=== PATIENT | female | born 1970 | race American Indian/Alaskan Native ===

== ENCOUNTER 2017-10-30 18:57 | Inpatient (IN) | payer OTHER ==
[2017-10-30 20:29] LABS: Basophils # (Auto) 0.1 K/mm3 (0.0-0.1); Eosinophils % (Auto) 0.2 % (0.0-4.3); Lymphocytes # (Auto) 1.8 K/mm3 (1.2-5.4); Lymphocytes % (Auto) 19.8 % (13.4-35.0); Mean Corpuscular HGB Conc 30 % (30-34); Mean Corpuscular Hemoglobin 29 pg (28-32); Mean Corpuscular Volume 98 fl (79-97); Monocytes # (Auto) 0.7 K/mm3 (0.0-0.8); Monocytes % (Auto) 7.9 % (0.0-7.3); Platelet Count 352 K/mm3 (140-440); Red Blood Count 1.73 M/mm3 (3.65-5.03); Red Cell Distribution Width 17.2 % (13.2-15.2)
[2017-10-30 20:45] LABS: Hematocrit 16.8 % (30.3-42.9); Hemoglobin 5.1 gm/dl (10.1-14.3)
[2017-10-30 20:57] LABS: Alanine Aminotransferase 15 units/L (7-56); Albumin 3.6 g/dL (3.9-5); BUN/Creatinine Ratio 11; Blood Urea Nitrogen 8 mg/dL (7-17); Hemolysis Index 7
[2017-10-31 07:43] LABS: Bacteria,Urine 1+ /HPF (Negative); Bilirubin,Urine NEG (Negative); Blood,Urine SM (Negative); Color,Urine Red (Yellow); Nitrite,Urine NEG (Negative); Protein,Urine <15 mg/dL mg/dL (Negative); Urobilinogen,Urine < 2.0 mg/dL (<2.0)
--- NOTE | 2017-10-31 09:09 | History and Physical Report ---
History of Present Illness Date of examination: 10/31/17 Date of admission: 10/31/17 Chief complaint: Generalized weakness and fatigue, nausea or vomiting History of present illness: 47-year-old -[place] female patient with significant past medical history of menorrhagia with uterine cysts Presented to the emergency room with generalized weakness and fatigue, patient was initially evaluated noted to have hemoglobin of 5.1 Patient seen TECHNICAL PROFESSIONAL many months ago, reports that TECHNICAL PROFESSIONAL did not recommend any surgical intervention Patient denies any chest pain or shortness of breath Nausea and vomiting resolved Review of complaints of generalized weakness fatigue and decreased effort tolerance No history of GI bleeding either hematemesis or melena Past History Past Medical History: other (menorrhagia ) Past Surgical History: No surgical history Social history: lives with family, full code. denies: smoking, alcohol abuse Family history: hypertension Medications and Allergies Allergies Allergy/AdvReac Type Severity Reaction Status Date / Time shrimp Allergy Swelling Verified 10/30/17 19:41 Review of Systems Constitutional: fatigue, weakness, no weight loss, no weight gain Ears, nose, mouth and throat: no nasal congestion, no nasal discharge Cardiovascular: decreased exercise tolerance, no chest pain, no orthopnea, no palpitations Respiratory: no cough, no shortness of breath Gastrointestinal: no abdominal pain, no nausea, no vomiting, no hematemesis, no melena, no hematochezia Genitourinary Female: no flank pain, no dysuria Menstruation: other (menorrhagia) Integumentary: no rash, no lesions Neurological: weakness, no seizures, no syncope Psychiatric: no anxiety, no depression Endocrine: no cold intolerance, no heat intolerance Hematologic/Lymphatic: no easy bruising, no easy bleeding Allergic/Immunologic: no urticaria, no allergic rhinitis Exam - Constitutional Vitals: Temp Pulse Resp BP Pulse Ox 98.6 F 103 H 14 126/67 100 10/31/17 07:25 10/31/17 07:25 10/31/17 03:40 10/31/17 03:40 10/31/17 03:40 General appearance: Present: no acute distress, well-nourished - EENT Eyes: Present: PERRL, EOM intact - Neck Neck: Present: supple, normal ROM - Respiratory Respiratory effort: normal Respiratory: negative: rales, rhonchi, wheezing - Cardiovascular Rhythm: regular Heart Sounds: Present: S1 & S2 - Extremities Extremities: no ischemia, No edema - Abdominal General gastrointestinal: Present: soft, non-tender, non-distended, normal bowel sounds - Integumentary Integumentary: Present: clear, warm, pale - Musculoskeletal Musculoskeletal: strength equal bilaterally, generalized weakness - Psychiatric Psychiatric: appropriate mood/affect, cooperative - Neurologic Neurologic: CNII-XII intact, moves all extremities Results - Labs CBC & Chem 7: 10/30/17 20:12 10/30/17 20:12 Labs: Abnormal lab results 10/30/17 10/30/17 Range/Units 20:12 20:12 RBC 1.73 L (3.65-5.03) M/mm3 Hgb 5.1 L* (10.1-14.3) gm/dl Hct 16.8 L* (30.3-42.9) % MCV 98 H (79-97) fl RDW 17.2 H (13.2-15.2) % [place] % (Auto) 7.9 H (0.0-7.3) % Seg Neutrophils % 71.1 H (40.0-70.0) % Sodium 136 L (137-145) mmol/L Chloride 95.7 L (98-107) mmol/L Glucose 116 H (65-100) mg/dL Calcium 8.0 L (8.4-10.2) mg/dL Total Protein 6.2 L (6.3-8.2) g/dL Albumin 3.6 L (3.9-5) g/dL Assessment and Plan --Acute on chronic blood loss anemia, hemoglobin 5.1 No active bleeding today, type and cross and transfuse 2 units of PRBC. Protocol Closely monitor H&H, iron supplements --History of menorrhagia; no active bleeding today Patient needs to see TECHNICAL PROFESSIONAL for further evaluation and management inpatient versus outpatient --Generalized weakness and fatigue/secondary to severe anemia Supportive care --DVT prophylaxis; no pharmacologic anticoagulation in view of severe anemia, we will use SCDs --DC planning; closely monitor H&H posttransfusion, if reasonable levels Can be discharged home Plan of care discussed with the patient here at physician and her nurse Answered all patient's questions, verbalized understanding
--- NOTE | 2017-10-31 09:32 | Emergency Department Report ---
ED General Adult HPI - General Chief complaint: Abdominal Pain Stated complaint: WEAKNESS, VAG BLEEDING Time Seen by Provider: 10/31/17 07:55 Source: patient Mode of arrival: Ambulatory Limitations: No Limitations - History of Present Illness Initial comments: 47-year-old female with history of dysfunctional uterine bleeding presents with weakness, near syncope, vomiting and diarrhea. She has had daily vaginal bleeding since February 2016. She has been followed by Dr. House inspector floor sub assembly [place] physician at [facility]. She has had pelvic ultrasounds and uterine endoscopy. However she does not have a definitive diagnosis. She comes to the ER for severe weakness and malaise. She denies pain. She states today the vaginal bleeding has stopped. She has not required transfusion in the past. She takes iron tablets daily. Patient is otherwise healthy. She denies history of hospitalizations. He received endoscopy at [facility]. -: Gradual, year(s) Severity scale (0 -10): 6 - Related Data Allergies Allergy/AdvReac Type Severity Reaction Status Date / Time shrimp Allergy Swelling Verified 10/30/17 19:41 ED Review of Systems ROS: Stated complaint: WEAKNESS, VAG BLEEDING Other details as noted in HPI Comment: All other systems reviewed and negative Constitutional: malaise, weakness Gastrointestinal: vomiting ED Past Medical Hx - Past Medical History Previous Medical History?: No - Surgical History Past Surgical History?: No - Social History Smoking Status: Never Smoker Substance Use Type: None ED Physical Exam - General Limitations: No Limitations General appearance: alert, in no apparent distress - Head Head exam: Present: atraumatic, normocephalic - Eye Eye exam: Present: normal appearance - ENT ENT exam: Present: mucous membranes moist - Neck Neck exam: Present: normal inspection. Absent: meningismus - Respiratory Respiratory exam: Present: normal lung sounds bilaterally. Absent: respiratory distress, wheezes, rales, rhonchi, stridor - Cardiovascular Cardiovascular Exam: Present: regular rate, normal rhythm, normal heart sounds. Absent: systolic murmur, diastolic murmur, rubs, gallop - GI/Abdominal GI/Abdominal exam: Present: soft, normal bowel sounds. Absent: distended, tenderness, guarding, rebound - External exam: Present: other (deferred) - Extremities Exam Extremities exam: Present: normal inspection - Back Exam Back exam: Present: normal inspection - Neurological Exam Neurological exam: Present: alert, oriented X3 - Psychiatric Psychiatric exam: Present: normal affect, normal mood - Skin Skin exam: Present: warm, dry, intact, normal color. Absent: rash ED Course Vital Signs 10/30/17 10/31/17 10/31/17 19:35 03:40 07:25 Temperature 98.2 F 98.4 F 98.6 F Pulse Rate 100 H 88 103 H Respiratory 20 14 Rate Blood Pressure 127/64 126/67 Blood Pressure 127/84 [Left] O2 Sat by Pulse 100 100 Oximetry ED Medical Decision Making - Lab Data Result diagrams: 10/30/17 20:12 10/30/17 20:12 Vital Signs - 24 hr 10/30/17 10/31/17 10/31/17 19:35 03:40 07:25 Temperature 98.2 F 98.4 F 98.6 F Pulse Rate 100 H 88 103 H Respiratory 20 14 Rate Blood Pressure 127/64 126/67 Blood Pressure 127/84 [Left] O2 Sat by Pulse 100 100 Oximetry Laboratory Results - last 24 hr 10/30/17 10/30/17 10/30/17 20:02 20:12 20:12 WBC 9.0 RBC 1.73 L Hgb 5.1 L* Hct 16.8 L* MCV 98 H MCH 29 MCHC 30 RDW 17.2 H Plt Count 352 Lymph % (Auto) 19.8 [place] % (Auto) 7.9 H Eos % (Auto) 0.2 Baso % (Auto) 1.0 Lymph # 1.8 [place] # 0.7 Eos # 0.0 Baso # 0.1 Seg Neutrophils % 71.1 H Seg Neutrophils # 6.4 Sodium 136 L Potassium 3.8 Chloride 95.7 L Carbon Dioxide 27 Anion Gap 17 BUN 8 Creatinine 0.7 Estimated GFR > 60 BUN/Creatinine Ratio 11 Glucose 116 H Calcium 8.0 L Total Bilirubin < 0.20 AST 21 ALT 15 Alkaline Phosphatase 54 Total Protein 6.2 L Albumin 3.6 L Albumin/Globulin Ratio 1.4 HCG, Quant Urine Color Urine Turbidity Urine pH Ur Specific [place] Urine Protein Urine Glucose (UA) Urine Ketones Urine Blood Urine Nitrite Urine Bilirubin Urine Urobilinogen Ur Leukocyte Esterase Urine WBC (Auto) Urine RBC (Auto) U Epithel Cells (Auto) Urine Bacteria (Auto) Blood Type B POSITIVE Antibody Screen Negative Crossmatch See Detail 10/30/17 10/31/17 20:12 07:25 WBC RBC Hgb Hct MCV MCH MCHC RDW Plt Count Lymph % (Auto) [place] % (Auto) Eos % (Auto) Baso % (Auto) Lymph # [place] # Eos # Baso # Seg Neutrophils % Seg Neutrophils # Sodium Potassium Chloride Carbon Dioxide Anion Gap BUN Creatinine Estimated GFR BUN/Creatinine Ratio Glucose Calcium Total Bilirubin AST ALT Alkaline Phosphatase Total Protein Albumin Albumin/Globulin Ratio HCG, Quant < 2 Urine Color Red Urine Turbidity Clear Urine pH 6.0 Ur Specific [place] 1.003 Urine Protein <15 mg/dl Urine Glucose (UA) Neg Urine Ketones Neg Urine Blood Sm Urine Nitrite Neg Urine Bilirubin Neg Urine Urobilinogen < 2.0 Ur Leukocyte Esterase Neg Urine WBC (Auto) 1.0 Urine RBC (Auto) 1.0 U Epithel Cells (Auto) 3.0 Urine Bacteria (Auto) 1+ Blood Type Antibody Screen Crossmatch - Medical Decision Making Ms. Weaver presents with severe anemia due to dysfunctional uterine bleeding. Daily vaginal bleeding for over one year. She will be admitted to service for transfusion therapy. Critical care attestation.: If time is entered above; I have spent that time in minutes in the direct care of this critically ill patient, excluding procedure time. ED Disposition Clinical Impression: Anemia, blood loss, Dysfunctional uterine bleeding Disposition: OP ADMIT IP TO THIS HOSP Is pt being admited?: Yes Does the pt Need Aspirin: No Condition: Stable Instructions: Abdominal Pain (ED) Referrals: YUAN GABRILE MD [Primary Care Provider] - 3-5 Days
[2017-10-31] MEDS ORDERED: NACL 0.9% 500 ML 500 ML IV NR (10:00)
[2017-10-31] MEDS: FEOSOL PO SCH ×2 (11:30→21:48)
[2017-10-31] MEDS: PEPCID PO SCH ×2 (11:35→21:48)
[2017-10-31 18:59] LABS: Hematocrit 23.7 % (30.3-42.9); Hemoglobin 7.3 gm/dl (10.1-14.3)
[2017-11-01] MEDS: TYLENOL PO PRN ×2 (04:55→17:36)
[2017-11-01 07:26] LABS: Basophils % (Auto) 0.3 % (0.0-1.8); Eosinophils # (Auto) 0.1 K/mm3 (0.0-0.4); Eosinophils % (Auto) 0.8 % (0.0-4.3); Hematocrit 23.6 % (30.3-42.9); Hemoglobin 7.1 gm/dl (10.1-14.3); Lymphocytes % (Auto) 16.5 % (13.4-35.0); Mean Corpuscular HGB Conc 30 % (30-34); Mean Corpuscular Hemoglobin 27 pg (28-32); Mean Corpuscular Volume 91 fl (79-97); Monocytes # (Auto) 1.1 K/mm3 (0.0-0.8); Monocytes % (Auto) 9.5 % (0.0-7.3); Platelet Count 334 K/mm3 (140-440); Red Blood Count 2.61 M/mm3 (3.65-5.03); Red Cell Distribution Width 18.3 % (13.2-15.2)
[2017-11-01] MEDS ORDERED: NACL 0.9% 500 ML 500 ML IV ONE ×2 (07:45→14:00)
--- NOTE | 2017-11-01 07:47 | Progress Note ---
Hospitalist Physical - Constitutional Vitals: Temp Pulse Resp BP Pulse Ox 99.4 F 75 20 106/64 98 10/31/17 23:48 10/31/17 23:48 10/31/17 23:48 10/31/17 23:48 10/31/17 23:48 General appearance: Present: no acute distress, well-nourished Results - Labs CBC & Chem 7: 11/01/17 06:41 10/30/17 20:12 Labs: Laboratory Last Values WBC 11.8 K/mm3 (4.5-11.0) H 11/01/17 06:41 RBC 2.61 M/mm3 (3.65-5.03) L 11/01/17 06:41 Hgb 7.1 gm/dl (10.1-14.3) L 11/01/17 06:41 Hct 23.6 % (30.3-42.9) L 11/01/17 06:41 MCV 91 fl (79-97) 11/01/17 06:41 MCH 27 pg (28-32) L 11/01/17 06:41 MCHC 30 % (30-34) 11/01/17 06:41 RDW 18.3 % (13.2-15.2) H 11/01/17 06:41 Plt Count 334 K/mm3 (140-440) 11/01/17 06:41 Lymph % (Auto) 16.5 % (13.4-35.0) 11/01/17 06:41 [place] % (Auto) 9.5 % (0.0-7.3) H 11/01/17 06:41 Eos % (Auto) 0.8 % (0.0-4.3) 11/01/17 06:41 Baso % (Auto) 0.3 % (0.0-1.8) 11/01/17 06:41 Lymph # 2.0 K/mm3 (1.2-5.4) 11/01/17 06:41 [place] # 1.1 K/mm3 (0.0-0.8) H 11/01/17 06:41 Eos # 0.1 K/mm3 (0.0-0.4) 11/01/17 06:41 Baso # 0.0 K/mm3 (0.0-0.1) 11/01/17 06:41 Seg Neutrophils % 72.9 % (40.0-70.0) H 11/01/17 06:41 Seg Neutrophils # 8.6 K/mm3 (1.8-7.7) H 11/01/17 06:41 Sodium 136 mmol/L (137-145) L 10/30/17 20:12 Potassium 3.8 mmol/L (3.6-5.0) 10/30/17 20:12 Chloride 95.7 mmol/L (98-107) L 10/30/17 20:12 Carbon Dioxide 27 mmol/L (22-30) 10/30/17 20:12 Anion Gap 17 mmol/L 10/30/17 20:12 BUN 8 mg/dL (7-17) 10/30/17 20:12 Creatinine 0.7 mg/dL (0.7-1.2) 10/30/17 20:12 Estimated GFR > 60 ml/min 10/30/17 20:12 BUN/Creatinine Ratio 11 % 10/30/17 20:12 Glucose 116 mg/dL (65-100) H 10/30/17 20:12 Calcium 8.0 mg/dL (8.4-10.2) L 10/30/17 20:12 Total Bilirubin < 0.20 mg/dL (0.1-1.2) 10/30/17 20:12 AST 21 units/L (5-40) 10/30/17 20:12 ALT 15 units/L (7-56) 10/30/17 20:12 Alkaline Phosphatase 54 units/L (35-129) 10/30/17 20:12 Total Protein 6.2 g/dL (6.3-8.2) L 10/30/17 20:12 Albumin 3.6 g/dL (3.9-5) L 10/30/17 20:12 Albumin/Globulin Ratio 1.4 % 10/30/17 20:12 HCG, Quant < 2 mIU/mL (0-4) 10/30/17 20:12 Urine Color Red (Yellow) 10/31/17 07:25 Urine Turbidity Clear (Clear) 10/31/17 07:25 Urine pH 6.0 (5.0-7.0) 10/31/17 07:25 Ur Specific [place] 1.003 (1.003-1.030) 10/31/17 07:25 Urine Protein <15 mg/dl mg/dL (Negative) 10/31/17 07:25 Urine Glucose (UA) Neg mg/dL (Negative) 10/31/17 07:25 Urine Ketones Neg mg/dL (Negative) 10/31/17 07:25 Urine Blood Sm (Negative) 10/31/17 07:25 Urine Nitrite Neg (Negative) 10/31/17 07:25 Urine Bilirubin Neg (Negative) 10/31/17 07:25 Urine Urobilinogen < 2.0 mg/dL (<2.0) 10/31/17 07:25 Ur Leukocyte Esterase Neg (Negative) 10/31/17 07:25 Urine WBC (Auto) 1.0 /HPF (0.0-6.0) 10/31/17 07:25 Urine RBC (Auto) 1.0 /HPF (0.0-6.0) 10/31/17 07:25 U Epithel Cells (Auto) 3.0 /HPF (0-13.0) 10/31/17 07:25 Urine Bacteria (Auto) 1+ /HPF (Negative) 10/31/17 07:25 Blood Type B POSITIVE 10/30/17 20:02 Antibody Screen Negative 10/30/17 20:02 Crossmatch See Detail 10/30/17 20:02
[2017-11-01] MEDS ORDERED: Fluarix Quad 2017-2018(36 MOS+ IM ONE (12:00)
[2017-11-01] MEDS: PEPCID PO SCH (12:12)
[2017-11-01] MEDS: FEOSOL PO SCH (12:12)
--- NOTE | 2017-11-01 13:10 | Discharge Summary ---
Providers - Providers Date of Admission: 10/31/17 08:57 Date of discharge: 11/01/17 Attending physician: PENELOPE HERNANDEZ Primary care physician: YUAN GABRIEL Hospitalization Reason for admission: Fatigue/symptomatic anemia Condition: Stable Pertinent studies: Growth and upon discharge was 5.1 Hospital course: 47-year-old -[place] female patient with significant past medical history of menorrhagia with uterine cysts was admitted through emergency room with symptomatic anemia, patient was feeling weak and fatigued unable to do daily chores, on evaluation patient is noted to have hemoglobin of 5.1 Admitted symptomatically managed Transfuse 2 units of PRBC with mild improvement, additional one more unit of PRBCs being transfused today Patient does not have any active bleeding He isn't also has a vague suprapubic discomfort, with mild burning of urine, urinalysis consistent with UTI Will advise Bactrim DS for 7 days, and follow with primary care physician Today's comfortable in bed no new complaints Vital signs are stable [id number] evaluation physical examination is unremarkable Patient is hemodynamically and clinically stable for discharge I spent 32 minutes coordinating this discharge Discharge diagnosis; Symptomatic anemia Acute on chronic blood loss anemia History of menorrhagia Generalized weakness and fatigue Urinary tract infection Disposition: IA- TO HOME OR SELFCARE Time spent for discharge: 32 min Core Measure Documentation - Palliative Care Palliative Care/ Comfort Measures: Not Applicable - Core Measures Any of the following diagnoses?: none Exam - Constitutional Vitals: Temp Pulse Resp BP Pulse Ox 98.4 F 67 18 109/63 99 11/01/17 08:22 11/01/17 08:22 11/01/17 08:22 11/01/17 08:22 11/01/17 08:22 General appearance: Present: no acute distress, well-nourished - EENT Eyes: Present: PERRL, EOM intact - Neck Neck: Present: supple, normal ROM - Respiratory Respiratory effort: normal Respiratory: bilateral: diminished, negative: rales, rhonchi, wheezing - Cardiovascular Rhythm: regular Heart Sounds: Present: S1 & S2 - Extremities Extremities: no ischemia, No edema - Abdominal General gastrointestinal: Present: soft, non-tender, non-distended, normal bowel sounds - Integumentary Integumentary: Present: clear, warm - Musculoskeletal Musculoskeletal: strength equal bilaterally - Psychiatric Psychiatric: appropriate mood/affect, cooperative - Neurologic Neurologic: CNII-XII intact, moves all extremities Plan Activity: no restrictions Diet: regular Additional Instructions: Need to see private clinical science consultant for further evaluation of menorrhagia. If you have uncontrolled vaginal bleeding, contact M.D. or go to emergency room Follow up with: YUAN GABRIEL MD [Primary Care Provider] - 3-5 Days RAYMUNDO CASAS MD [Staff Physician] - 7 Days Prescriptions: Dicyclomine [Bentyl] 10 mg PO TID #15 capsule Ferrous Sulfate [Feosol 325 MG tab] 325 mg PO BID #60 tablet Sulfamethoxazole/Trimethoprim [Bactrim DS TAB] 1 each PO BID #14 tablet
[2017-11-01 17:44] VITALS: BP 112/70
[2017-11-01 18:13] LABS: Basophils # (Auto) 0.1 K/mm3 (0.0-0.1); Basophils % (Auto) 0.7 % (0.0-1.8); Eosinophils # (Auto) 0.1 K/mm3 (0.0-0.4); Hematocrit 27.5 % (30.3-42.9); Hemoglobin 8.7 gm/dl (10.1-14.3); Lymphocytes # (Auto) 1.8 K/mm3 (1.2-5.4); Lymphocytes % (Auto) 16.9 % (13.4-35.0); Mean Corpuscular HGB Conc 32 % (30-34); Mean Corpuscular Hemoglobin 29 pg (28-32); Mean Corpuscular Volume 91 fl (79-97); Monocytes # (Auto) 1.1 K/mm3 (0.0-0.8); Monocytes % (Auto) 9.8 % (0.0-7.3); Platelet Count 312 K/mm3 (140-440); Red Blood Count 3.03 M/mm3 (3.65-5.03); Red Cell Distribution Width 17.8 % (13.2-15.2)
== END 2017-11-01 20:00 | disposition home or self-care (01) | DRG 812 ==
LOC: ED 18:57 → 3A 10-31 08:57
PROVIDERS: ADMIT Internal Medicine; ATTEND Internal Medicine
PROC: 30233N1 Transfusion of Nonautologous Red Blood Cells into Peripheral Vein, Percutaneous Approach (ICD-10-PCS; principal; 2017-10-31)
PROC: 3E0234Z Introduction of Serum, Toxoid and Vaccine into Muscle, Percutaneous Approach (ICD-10-PCS; 2017-11-01)
DX: D62 Acute posthemorrhagic anemia (principal); N39.0 Urinary tract infection, site not specified; N92.0 Excessive and frequent menstruation with regular cycle; Z23 Encounter for immunization; Z82.49 Family history of ischemic heart disease and other diseases of the circulatory system; Z91.013 Allergy to seafood
CPT/HCPCS: 36415; 80053; 81001; 84702; 85018; 85025; 86850; 86900; 86901; 86920; 90686; 99285; J7040; P9016